=== PATIENT | male | born 1995 | race Caucasian/White ===

== ENCOUNTER 2022-04-21 10:28 | Emergency (ER) | payer BC, SELFPAY ==
--- NOTE | ~2022-04-21 | XR_ITS ---
EXAMINATION: XR hand RT min 3V INDICATION: Right hand pain TECHNIQUE: Three views of the right hand are obtained. COMPARISON: None available FINDINGS: There is no fracture, dislocation, or subluxation. The bones, soft tissues, and joint space s are normal. IMPRESSION: 1. No acute osseous abnormality. Reviewed, dictated and finalized at location A.
[2022-04-21 10:34] VITALS: BP 147/102; PULSE 105; RESP 20; TEMP 37.1; O2SAT 98
--- NOTE | 2022-04-21 10:56 | ED.UPPEXIN ---
HPI - Extremity Injury (Upper) General Chief Complaint: Extremity Injury, Upper Stated Complaint: R thumb pain Time Seen by Provider: 04/21/22 10:36 Source: patient Mode of arrival: ambulatory Limitations: no limitations History of Present Illness HPI narrative: This is a 26 year old male that presents to the ER for right hand pain after an injury last night. Reports he saw a spider on his chair and went to swat at it. Reports hitting his hand on the chair. Reports swelling and pain to the area. Reports decreased ROM due to pain. Denies numbness. Related Data Allergies Allergy/AdvReac Type Severity Reaction Status Date / Time No Known Allergies Allergy Unknown Unverified 05/28/17 04:47 Review of Systems Review of Systems: CONSTITUTIONAL: Denies fever MUSCULOSKELETAL: Reports joint pain, and myalgia. NEUROLOGIC: Denies numbness All systems reviewed & are unremarkable except as noted in HPI and below PMFSH Past Medical History Medical History (Updated 04/21/22 @ 11:28 by Rody Piña PA-C) History of depression Social History Social History (Updated 04/21/22 @ 10:59 by Rody Piña PA-C) Smoking status: Never smoker Exam Narrative: GENERAL: Well-appearing, well-nourished, and in no acute distress. HEAD: Normocephalic, atraumatic. EYES: EOMI. EXTREMITIES: Normal range of motion. Mild edema about the right 1st metacarpal. No obvious deformity. Normal radial pulse. Normal sensation SKIN: Warm, dry, no rash. NEURO: No focal deficits. Alert and oriented x3. PSYCH: Normal mood and affect Course Vital Signs Vital signs: Vital Signs Temperature 98.7 F 04/21/22 10:34 Pulse Rate 105 H 04/21/22 10:34 Respiratory Rate 20 04/21/22 10:34 Blood Pressure 147/102 H 04/21/22 10:34 Pulse Oximetry 98 04/21/22 10:34 Oxygen Delivery Room Air 04/21/22 10:34 Temperature 98.7 F 04/21/22 10:34 Pulse Rate 105 H 04/21/22 10:34 Respiratory Rate 20 04/21/22 10:34 Blood Pressure 147/102 H 04/21/22 10:34 Pulse Oximetry 98 04/21/22 10:34 Oxygen Delivery Room Air 04/21/22 10:34 MDM - Extremity Injury (Upper) MDM Narrative Medical decision making narrative: Patient presents to the emergency department for right hand pain after an injury sustained last night. Patient is neurovascularly intact. Right hand x-ray without acute osseous abnormalities. Patient instructed to rest, ice and take [id number] pain medication as needed. He is to follow-up with his primary care doctor. He was given warnings to return to the ER Imaging Data Radiologist's impression: ITS Impressions Hand X-Ray 04/21/22 10:45 IMPRESSION: 1. No acute osseous abnormality. Critical Care Time Critical Care Time Critical Care Time: No Discharge Plan Discharge Clinical Impression: Contusion of hand Qualifiers: Encounter type: initial encounter Laterality: right Qualified Code(s): S60.221A - Contusion of right hand, initial encounter Patient Disposition: Home, Self-Care Condition: Stable Additional Instructions: Return to the emergency department if you experience fever, redness and swelling of your arm, numbness, or any other symptoms that are concerning to you Rest. Elevate. Ice to the area. [id number] pain medication as needed Follow-up with your primary care doctor Follow-up/Referrals: Callie,Fatemeh Contreras APN [Primary Care Provider] - 1 Week Stand Alone Forms: Work/School Release IP
[2022-04-21] MEDS: IBUPROFEN 600 MG TABLET PO (11:13)
== END 2022-04-21 11:36 | disposition home or self-care (01) ==
PROVIDERS: Emergency Provider Emergency Medicine; PCP Nurse Practitioner Family
DX: S60.221A Contusion of right hand, initial encounter (principal); W22.8XXA Striking against or struck by other objects, initial encounter
CPT/HCPCS: 73130; 99283; A9270